=== PATIENT | female | born 1955 | race Caucasian/White ===

== ENCOUNTER → 2016-07-19 | Outpatient (CLI) | payer BC, OTHER ==
--- NOTE | ~2016-07-19 | EKG ---
[place] [address] [facility] [place] [address] ELECTROCARDIOGRAM REPORT Name: ROMEROJANEEN TavaresEdu Mgiuel Room #: [facility] Y[facility] Ivan#: [id number] Admission: 07/19/16 Attend Phys: Brissa Morrissey MD Discharge: Date of : 53 Report #: [id number] THIS REPORT FOR: //name// [facility] Test Date: 2016-07-19 Test Time: 13:55:20 Pat Name: MACKENZIE ROMERO Department: Room: Gender: F Distribution Warehouse Manager: korin : 1955 Requested By: Brissa Morrissey Order Number: [id number] MD: Buster Ott Measurements Intervals [place] Rate: 50 P: 74 W[place]: 151 QRS: 62 QRSD: 109 T: 53 QT: 461 QTc: 421 Interpretive Statements Sinus bradycardia Otherwise no significant abnormality No previous ECG available for comparison Electronically Signed On 07-20-2016 9:01:46 [employer] by Buster Ott [email or web address] <ELECTRONICALLY SIGNED> By: Buster Ott MD, [facility] 07/20/16 0901 1355 1355 Buster Ott MD, FACC /EPI
== END ==
LOC: CV 13:36
DX: Z12.31 Encounter for screening mammogram for malignant neoplasm of breast (principal)

== ENCOUNTER → 2021-05-06 | Outpatient (CLI) | payer BC, OTHER | LOC: NUC 09:14 | PROVIDERS: ATTEND Family Medicine | DX: M85.89 Other specified disorders of bone density and structure, multiple sites (principal); M81.0 Age-related osteoporosis without current pathological fracture ==